=== PATIENT | male | born 1965 | race Two or more races ===

== ENCOUNTER 2017-11-30 19:56 | Inpatient (IN) | payer OTHER ==
[2017-11-30 20:12] VITALS: BMI 36.0
--- NOTE | 2017-11-30 20:44 | HP ---
COWS - Scale Resting Pulse: 0= [place] 80 or Below Sweatin=Flushed/Facial Moisture Restless Observation: 1= Difficult to Sit Still Pupil Size: 0= Normal to Room Light Bone or Joint Aches: 1= Mild Discomfort Runny Nose/ Eye Tearin= Runny Nose/Eyes GI Upset > 30mins: 3= Vomiting/Diarrhea Tremor Observation: 2= Slight Tremor Visible Yawning Observation: 1= 1-2x During Session Anxiety or Irritability: 4=Extreme Anxiety Goose Flesh Skin: 0=Smooth Skin COWS Score: 16 CIWA Score - CIWA Score Nausea/Vomitin Muscle Tremors: 2 Anxiety: 3 Agitation: 3 Paroxysmal Sweats: 2 Orientation: 1-Uncertain about Date (no distress) Tacttile Disturbances: 1-Very Mild Itch/Numbness Auditory Disturbances: 0-None Visual Disturbances: 0-None Headache: 3-Moderate CIWA-Ar Total Score: 18 Admission ROS S - HPI Chief Complaint: opioid and alcohol withdrawal symptoms Allergies/Adverse Reactions: Allergies Allergy/AdvReac Type Severity Reaction Status Date / Time No Known Allergies Allergy Verified 11/30/17 20:45 History of Present Illness: 52 yo male with hx of IV heroin, alcohol, THC, and nicotine dependence is here seeking detox. PMHX: HTN, hyperlipidemia, CHF, A-Fib, Pacemaker, DM II, Hep C, COPD, depression, PTSD. Reports non-compliance with medications, reports takes them sporadically 1-2 days out the week. Patient reports this past Thursday was taken to [facility] for Overdose, as per patient he has OD 2x. Denies suicidal / homicidal ideation. Last detox 2010. Longest period of sobriety 6 years. Exam Limitations: No Limitations - Ebola screening Have you been sick,other than usual withdrawal symptoms: No - Review of Systems Constitutional: Chills, Diaphoresis, Changes in sleep, Unintentional Wgt. Loss EENT: reports: No Symptoms Reported Respiratory: reports: See HPI, SOB with Exertion Cardiac: reports: No Symptoms Reported GI: reports: Diarrhea, Nausea, Poor Appetite, Poor Fluid Intake, Vomiting, Abdominal cramping : reports: No Symptoms Reported Musculoskeletal: reports: No Symptoms Reported, Back Pain, Joint Pain Integumentary: reports: Pruritus Neuro: reports: See HPI, Headache Endocrine: reports: Excessive Sweating, Increased Thirst Hematology: reports: Blood Clots (hx PE July 2017) Psychiatric: reports: Orientated x3, Anxious Other Systems: Reviewed and Negative Patient History - Patient Medical History Hx Anemia: No Hx Asthma: No Hx Chronic Obstructive Pulmonary Disease (COPD): Yes Hx Cancer: No Hx Cardiac Disorders: Yes (HX [place] x 4, hx A-Fib) Hx Congestive Heart Failure: Yes Hx Hypertension: Yes Hx Hypercholesterolemia: Yes Hx Pacemaker: Yes (Inmplanted two months ) HX Cerebrovascular Accident: Yes (hx TIA (age undetermine)) Hx Seizures: No Hx Dementia: No Hx Diabetes: Yes Hx Gastrointestinal Disorders: No Hx Liver Disease: Yes (Hep C ) Hx Genitourinary Disorders: No Hx Sexually Transmitted Disorders: No Hx Renal Disease (ESRD): No Hx Thyroid Disease: No Hx Human Immunodeficiency Virus (HIV): No (last tested 5 months ago ) Hx Hepatitis C: Yes Hx Depression: Yes Hx Suicide Attempt: No Hx Bipolar Disorder: No Hx Schizophrenia: No - Patient Surgical History Past Surgical History: Yes Hx Neurologic Surgery: No Hx Cataract Extraction: No Hx Cardiac Surgery: Yes (Pace Maker September 2017) Hx Lung Surgery: No Hx Breast Surgery: No Hx Breast Biopsy: No Hx Abdominal Surgery: No Hx Appendectomy: No Hx Cholecystectomy: No Hx Genitourinary Surgery: No Hx Section: No Hx Orthopedic Surgery: No Hx Hysterectomy: No Anesthesia Reaction: No - PPD History Previous Implant?: Yes Documented Results: Negative w/o proof PPD to be Administered?: Yes - Smoking Cessation Smoking history: Current every day smoker Have you smoked in the past 12 months: Yes Aproximately how many cigarettes per day: 20 Hx Chewing Tobacco Use: No Initiated information on smoking cessation: Yes 'Breaking Loose' booklet given: 11/30/17 - Substance & Tx. History Hx Alcohol Use: Yes Hx Substance Use: Yes Substance Use Type: Alcohol, Heroin Hx Substance Use Treatment: Yes ([facility] 2010) - Substances Abused Alcohol Route: Oral Frequency: 3-6 times per week Amount used: 3 x six pack 16 oz beers Age of first use: 14 Date of Last Use: 11/29/17 Heroin Route: Injection Frequency: Daily Amount used: 3 bundles Age of first use: 14 Date of Last Use: 11/29/17 Family Disease History - Family Disease History Family Disease History: CA: Father ( ), Mother ( ), Other: Father , Mother Admission Physical Exam BHS - Vital Signs Vital Signs: Vital Signs - 24 hr 11/30/17 20:09 Temperature 98.9 F Pulse Rate 72 Respiratory 18 Rate Blood Pressure 156/110 - Physical General Appearance: Yes: Disheveled, Mild Distress, Sweating, Anxious HEENTM: Yes: EOMI, Hearing grossly Normal, Normal ENT Inspection, Normocephalic , Normal Voice, JESUS, Pharynx Normal, Tm's normal Respiratory: Yes: Chest Non-Tender, Lungs Clear, Normal Breath Sounds, No Respiratory Distress, No Accessory Muscle Use Neck: Yes: Within Normal Limits Breast: Yes: Breast Exam Deferred Cardiology: Yes: Regular Rhythm, Regular Rate Abdominal: Yes: Normal Bowel Sounds, Non Tender, Soft, Protuberent Genitourinary: Yes: Within Normal Limits Back: Yes: Normal Inspection Musculoskeletal: Yes: full range of Motion, Gait Steady, Pelvis Stable Extremities: Yes: Normal Capillary Refill, Normal Inspection, Normal Range of Motion, Non-Tender Neurological: Yes: environmental journalist II-XII NML intact, Fully Oriented, Alert, Motor Strength 5/5, Depressed Affect Integumentary: Yes: Normal Color, Warm, Diaphoresis, Track Estrada (both forearms and both legs, no signs of infection) Lymphatic: Yes: Within Normal Limits - Diagnostic (1) Opioid dependence with withdrawal Current Visit: Yes Status: Acute (2) Alcohol dependence with withdrawal Current Visit: Yes Status: Acute Qualifiers: Complication of substance-induced condition: uncomplicated Qualified Code(s ): F10.230 - Alcohol dependence with withdrawal, uncomplicated (3) CHF (congestive heart failure) Current Visit: Yes Status: Chronic Qualifiers: Heart failure type: unspecified Heart failure chronicity: chronic Qualified Code(s): I50.9 - Heart failure, unspecified (4) Pacemaker Current Visit: Yes Status: Chronic Comment: placed September 2017 (5) IV drug user Current Visit: Yes Status: Acute (6) Obese Current Visit: Yes Status: Chronic Qualifiers: Obesity type: unspecified obesity type Obesity classification: adult class 2 (BMI 35 - 39.9) Serious obesity comorbidity presence: with serious comorbidity Body mass index: BMI 36.0-36.9 Qualified Code(s): E66.9 - Obesity, unspecified; Z68.36 - Body mass index (BMI) 36.0-36.9, adult (7) Hypertension Current Visit: Yes Status: Chronic Qualifiers: Hypertension type: essential hypertension Qualified Code(s): I10 - Essential (primary) hypertension (8) Elevated blood pressure reading in office with diagnosis of hypertension Current Visit: Yes Status: Acute (9) Non compliance w medication regimen Current Visit: Yes Status: Chronic (10) COPD (chronic obstructive pulmonary disease) Current Visit: Yes Status: Chronic Qualifiers: COPD type: unspecified COPD Qualified Code(s): J44.9 - Chronic obstructive pulmonary disease, unspecified (11) GERD (gastroesophageal reflux disease) Current Visit: Yes Status: Chronic Qualifiers: Esophagitis presence: without esophagitis Qualified Code(s): K21.9 - Gastro -esophageal reflux disease without esophagitis Cleared for Admission BHS - Detox or Rehab S Level of Care: Medically Managed Detox Regimen/Protocol: Methadone/Librium BHS Breath Alcohol Content Breath Alcohol Content: 0 Urine Drug Screen - Results Drug Screen Negative: No Urine Drug Screen Results: THC-Marijuana, OPI-Opiates
[2017-11-30] MEDS ORDERED: MENTHOL/PHENOL 1 EACH UD MM PRN (20:54)
[2017-11-30] MEDS ORDERED: guaiFENesin/D-METHORPHAN HB 10 ML UNIT-DOSE CUPS PO PRN (20:54)
[2017-11-30] MEDS ORDERED: MAGNESIUM CITRATE 300 ML BOTTLE PO PRN (20:54)
[2017-11-30] MEDS ORDERED: MAG HYDROX/AL HYDROX/SIMETH 30 ML UNIT-DOSE CUP PO PRN (20:54)
[2017-11-30] MEDS ORDERED: LOPERAMIDE HCL 2 MG CAPSULE PO PRN (20:54)
[2017-11-30] MEDS ORDERED: MAGNESIUM HYDROX 2400MG/30ML ORAL SUSPENSION 30 ML CUP PO PRN (20:54)
[2017-11-30] MEDS ORDERED: chlordiazePOXIDE HCL 25 MG CAPSULE PO ONE (20:54)
[2017-11-30] MEDS ORDERED: NICOTINE POLACRILEX 2 MG GUM BC PRN (20:54)
[2017-11-30] MEDS ORDERED: P-EPHED 60MG/TRIPROLIDI 2.5MG TABLET PO PRN (20:54)
[2017-11-30] MEDS ORDERED: chlordiazePOXIDE HCL 25 MG CAPSULE PO PRN (20:54)
[2017-11-30] MEDS ORDERED: METHADONE HCL 10 MG TABLET (FOR DETOX USE ONLY) PO ONE ×2 (20:54→23:00)
[2017-11-30] MEDS ORDERED: ALBUTEROL SO4 2.5/IPRATROPIUM 0.5 INH SOL 3 ML VIAL.NEB. NEB PRN (21:38)
[2017-11-30] MEDS ORDERED: cloNIDine HCL 0.1 MG TABLET PO ONE (21:42)
[2017-11-30] MEDS ORDERED: MELATONIN 5 MG TABLETS PO PRN (22:00)
[2017-11-30] MEDS ORDERED: METHADONE HCL 10 MG TABLET (FOR DETOX USE ONLY) ONE (23:39)
[2017-11-30] MEDS: THIAMINE HCL 100 MG TABLET (FP) PO SCH (23:42)
[2017-11-30] MEDS: ATORVASTATIN CA 10 MG TABLET (FP) PO SCH (23:42)
[2017-11-30] MEDS: ASPIRIN 81 MG CHEWABLE TABLETS PO SCH (23:42)
[2017-11-30] MEDS: BACITRACIN 0.9 GM PACKET TP SCH (23:51)
[2017-11-30] MEDS: chlordiazePOXIDE HCL 25 MG CAPSULE PO SCH (23:54)
[2017-12-01 00:11] LABS: URINE APPEARANCE CLEAR; URINE BILIRUBIN NEGATIVE (<2.0 mg/dL); URINE COLOR YELLOW; URINE GLUCOSE (UA) 1+ (NEGATIVE); URINE KETONE NEGATIVE (NEGATIVE); URINE LEUK ESTERASE NEGATIVE (NEGATIVE); URINE NITRITE NEGATIVE (NEGATIVE); URINE UROBILINOGEN 4.0 E.U/dl mg/dL (0.2-1.0)
[2017-12-01 01:06] LABS: URINE PROTEIN 2+ (NEGATIVE)
[2017-12-01 01:08] LABS: EPI CELLS RARE /HPF (FEW); URINE MUCUS RARE
[2017-12-01] MEDS: chlordiazePOXIDE HCL 25 MG CAPSULE PO SCH ×4 (05:22→22:09)
[2017-12-01] MEDS: ACETAMINOPHEN 325 MG TABLET (FP) PO PRN ×2 (05:44→22:11)
[2017-12-01] MEDS: metFORMIN HCL 500 MG TABLET (FP) PO SCH ×2 (06:04→17:14)
[2017-12-01] MEDS: INSULIN SLIDING SCALE (NOVOLOG) 1 VIAL SQ SCH ×2 (06:05→17:16)
[2017-12-01] MEDS ORDERED: METHADONE HCL 10 MG TABLET (FOR DETOX USE ONLY) PO SCH (10:00)
[2017-12-01 10:10] LABS: HEMATOCRIT 39.6 % (35.4-49); HEMOGLOBIN 13.2 GM/dL (11.7-16.9); MCH 29.4 pg (25.7-33.7); MCHC 33.4 g/dl (32.0-35.9); MEAN CELL VOLUME 87.9 fl (80-96); PLATELET COUNT 156 K/MM3 (134-434); RDW 16.2 % (11.9-15.9); WHITE BLOOD COUNT 7.6 K/mm3 (4.0-10.0)
[2017-12-01] MEDS: LISINOPRIL 20 MG TABLET (FP) PO SCH (10:31)
[2017-12-01] MEDS: ASPIRIN 81 MG CHEWABLE TABLETS PO SCH (10:31)
[2017-12-01] MEDS: PRENATAL VITAMINS W/ FOLIC ACID TABLET (FP) PO SCH (10:31)
[2017-12-01] MEDS: NICOTINE 21 MG/24 HOURS TOPICAL PATCH TD SCH (10:32)
[2017-12-01] MEDS: BACITRACIN 0.9 GM PACKET TP SCH (10:32)
[2017-12-01] MEDS: BUDESONIDE/FORMETEROL FUMARATE 160/4.5 mcg INHALER IH SCH ×2 (10:32→22:09)
[2017-12-01 10:44] LABS: ANION GAP 5 (8-16); BLOOD UREA NITROGEN 9 mg/dL (7-18); CALCIUM 8.5 mg/dL (8.5-10.1); CHLORIDE 103 mmol/L (98-107); CO2 31 mmol/L (21-32); CREATININE 0.9 mg/dL (0.7-1.3); GLUCOSE,RANDOM 237 mg/dL (74-106); POTASSIUM 3.9 mmol/L (3.5-5.1); SGOT/AST 29 U/L (15-37); SGPT/ALT 46 U/L (12-78); SODIUM 139 mmol/L (136-145)
[2017-12-01 10:45] LABS: ALK PHOS 200 U/L (45-117); BILIRUBIN,TOTAL 0.5 mg/dL (0.2-1.0); TOT PROT 6.8 g/dl (6.4-8.2)
--- NOTE | 2017-12-01 11:54 | PN ---
[facility] CIWA - CIWA Score Nausea/Vomitin-No Nausea/No Vomiting Muscle Tremors: None Anxiety: 5 Agitation: 3 Paroxysmal Sweats: 3 Orientation: 2-Disoriented Date<2 days Tacttile Disturbances: 2-Mild Itch/Numbness/Burn Auditory Disturbances: 0-None Visual Disturbances: 3-Moderate Sensitivity Headache: 0-None Present CIWA-Ar Total Score: 18 BHS COWS - Scale Resting Pulse: 0= [place] 80 or Below Sweatin= Chills/Flushing Restless Observation: 1= Difficult to Sit Still Pupil Size: 0= Normal to Room Light Bone or Joint Aches: 1= Mild Discomfort Runny Nose/ Eye Tearin= Nasal Congestion GI Upset > 30mins: 2= Nausea/Diarrhea Tremor Observation of Outstretched Hands: 0= None Yawning Observation: 1= 1-2x During Session Anxiety or Irritability: 2=Irritable/Anxious Goose Flesh Skin: 3=Piloerection COWS Score: 12 BHS Progress Note (SOAP) Subjective: Interrupted Sleep, Sweating, H/A, Diarrhea, Anxious. Objective: PATIENT A & O X 2 (UNCERTAIN ABOUT CURRENT DAY / DATE). PATIENT OBSERVED AMBULATING ON UNIT. NO ACUTE DISTRESS. PATIENT REPORTS THAT HE HAS NOT TAKEN ANY OF HIS PREVIOUSLY PRESCRIBED HOME MEDICATIONS FOR APROX. 2 MONTHS. PATIENT DENIES CHEST PAIN, DIZZINESS, AND SOB. 12/01/17 11:53 Vital Signs Temperature 95.5 F L 12/01/17 09:38 Pulse Rate 69 12/01/17 09:38 Respiratory Rate 18 12/01/17 09:38 Blood Pressure 141/92 12/01/17 09:38 O2 Sat by Pulse Oximetry (%) Laboratory Tests 11/30/17 11/30/17 11/30/17 21:41 23:49 23:50 WBC RBC Hgb Hct MCV MCH MCHC RDW Plt Count MPV Sodium Potassium Chloride Carbon Dioxide Anion Gap BUN Creatinine Creat Clearance w eGFR POC Glucometer 281 270 Random Glucose Calcium Total Bilirubin AST ALT Alkaline Phosphatase Total Protein Albumin Urine Color Yellow Urine Appearance Clear Urine pH 7.0 Ur Specific [place] 1.021 Urine Protein 2+ H Urine Glucose (UA) 1+ H Urine Ketones Negative Urine Blood Negative Urine Nitrite Negative Urine Bilirubin Negative Urine Urobilinogen 4.0 e.u/dl Ur Leukocyte Esterase Negative Urine WBC (Auto) 1 Urine RBC (Auto) 1 Ur Epithelial Cells Rare Urine Mucus Rare 12/01/17 12/01/17 12/01/17 05:21 07:15 07:15 WBC 7.6 RBC 4.50 Hgb 13.2 Hct 39.6 MCV 87.9 MCH 29.4 MCHC 33.4 RDW 16.2 H Plt Count 156 MPV 10.0 Sodium 139 Potassium 3.9 Chloride 103 Carbon Dioxide 31 Anion Gap 5 L BUN 9 Creatinine 0.9 Creat Clearance w eGFR > 60 POC Glucometer 191 Random Glucose 237 H Calcium 8.5 Total Bilirubin 0.5 AST 29 ALT 46 Alkaline Phosphatase 200 H Total Protein 6.8 Albumin 3.0 L Urine Color Urine Appearance Urine pH Ur Specific [place] Urine Protein Urine Glucose (UA) Urine Ketones Urine Blood Urine Nitrite Urine Bilirubin Urine Urobilinogen Ur Leukocyte Esterase Urine WBC (Auto) Urine RBC (Auto) Ur Epithelial Cells Urine Mucus LABS NOTED. RPR RESULT PENDING. 12/01/17 11:55 12/01/17 11:56 12/01/17 11:57 Assessment: 12/01/17 11:54 WITHDRAWAL SYMPTOMS. HYPERTENSION. 12/01/17 11:56 Plan: CONTINUE DETOX. PATIENT REPORTS THAT HE DOES NOT CURRENTLY HAVE A KICKING MACHINE OPERATOR BUT THAT HE WILL BE MOVING TO THE [facility] AFTER DISCHARGE FROM DETOX UNIT. PATIENT ADVISED TO OBTAIN KICKING MACHINE OPERATOR AT [facility] AFTER DISCHARGE FROM DETOX UNIT TO FOLLOW-UP FOR MEDICAL ASSESSMENT AND FOR HISTORY OF A-FIB AND PACEMAKER PLACEMENT.
--- NOTE | 2017-12-01 12:08 | EKG ---
Test Reason : Blood Pressure : / mmHG Vent. Rate : 069 BPM Atrial Rate : 069 BPM P-R Int : 000 ms QRS Dur : 168 ms QT Int : 476 ms P-R-T Axes : 056 -80 085 degrees QTc Int : 510 ms Ventricular-paced rhythm ABNORMAL ECG Confirmed by MD JAMES, DICKSON ([id number]) on 12/01/2017 12:08:19 PM Referred By: Confirmed By:DICKSON RAMIREZ MD
--- NOTE | 2017-12-01 12:09 | EKG ---
Test Reason : Blood Pressure : / mmHG Vent. Rate : 071 BPM Atrial Rate : 087 BPM P-R Int : 000 ms QRS Dur : 082 ms QT Int : 378 ms P-R-T Axes : 000 047 195 degrees QTc Int : 410 ms Ventricular-paced rhythm WITH OCCASIONAL sinus complexes ABNORMAL ECG Confirmed by MD JAMES, DICKSON ([id number]) on 12/01/2017 12:08:36 PM Referred By: Confirmed By:DICKSON RAMIREZ MD
[2017-12-01] MEDS ORDERED: ISOSORBIDE MONONITRATE 30 MG TAB.SR.24H (FP) PO SCH (13:15)
[2017-12-01] MEDS: ISOSORBIDE MONONITRATE 30 MG TAB.SR.24H (FP) PO SCH (14:02)
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
[2017-12-01] MEDS ORDERED: INSULIN (NOVOLOG) ASPART 100 UNITS/ML 10ML VIAL ONE (16:43)
[2017-12-01] MEDS: THIAMINE HCL 100 MG TABLET (FP) PO SCH (22:09)
[2017-12-01] MEDS: ZOLPIDEM TARTRATE 10 MG TABLET (PARK CARE ONLY) PO PRN (22:09)
[2017-12-01] MEDS: ATORVASTATIN CA 10 MG TABLET (FP) PO SCH (22:09)
[2017-12-02] MEDS: chlordiazePOXIDE HCL 25 MG CAPSULE PO SCH ×3 (05:45→17:26)
[2017-12-02] MEDS: metFORMIN HCL 500 MG TABLET (FP) PO SCH ×2 (06:10→17:26)
[2017-12-02] MEDS ORDERED: INSULIN (NOVOLOG) ASPART 100 UNITS/ML 10ML VIAL ONE ×2 (06:12→16:54)
[2017-12-02] MEDS: INSULIN SLIDING SCALE (NOVOLOG) 1 VIAL SQ SCH ×2 (06:36→17:28)
[2017-12-02] MEDS: BACITRACIN 0.9 GM PACKET TP SCH (10:19)
[2017-12-02] MEDS: SERTRALINE HCL 25 MG TABLET (FP) PO SCH (10:19)
[2017-12-02] MEDS: PRENATAL VITAMINS W/ FOLIC ACID TABLET (FP) PO SCH (10:19)
[2017-12-02] MEDS: LISINOPRIL 20 MG TABLET (FP) PO SCH (10:19)
[2017-12-02] MEDS: ISOSORBIDE MONONITRATE 30 MG TAB.SR.24H (FP) PO SCH (10:19)
[2017-12-02] MEDS: ASPIRIN 81 MG CHEWABLE TABLETS PO SCH (10:19)
[2017-12-02] MEDS: METHADONE HCL 5 MG TABLET (FOR DETOX USE ONLY) PO SCH (10:19)
[2017-12-02] MEDS: BUDESONIDE/FORMETEROL FUMARATE 160/4.5 mcg INHALER IH SCH ×2 (10:19→22:52)
[2017-12-02] MEDS: NICOTINE 21 MG/24 HOURS TOPICAL PATCH TD SCH (10:20)
--- NOTE | 2017-12-02 11:40 | PN ---
S CIWA - CIWA Score Nausea/Vomitin-No Nausea/No Vomiting Muscle Tremors: None Anxiety: 4-Mod. Anxious/Guarded Agitation: 1-Slight > Activity Paroxysmal Sweats: 3 Orientation: 0-Oriented Tacttile Disturbances: 2-Mild Itch/Numbness/Burn Auditory Disturbances: 1-Very Mild Visual Disturbances: 3-Moderate Sensitivity Headache: 0-None Present CIWA-Ar Total Score: 14 S COWS - Scale Resting Pulse: 0= [place] 80 or Below Sweatin= Chills/Flushing Restless Observation: 0= Sits Still Pupil Size: 0= Normal to Room Light Bone or Joint Aches: 2= Severe Diffuse Aches Runny Nose/ Eye Tearin= Nasal Congestion GI Upset > 30mins: 2= Nausea/Diarrhea Tremor Observation of Outstretched Hands: 0= None Yawning Observation: 2= >3x During Session Anxiety or Irritability: 2=Irritable/Anxious Goose Flesh Skin: 0=Smooth Skin COWS Score: 10 S Progress Note (SOAP) Subjective: Sweating, Fatigue, H/A, Body Aches, Diarrhea. Objective: PATIENT A & O X 3. NO ACUTE DISTRESS. PATIENT DENIES CHEST PAIN, SOB, AND DIZZINESS. 12/02/17 11:38 Vital Signs Temperature 96.8 F L 12/02/17 09:01 Pulse Rate 74 12/02/17 09:01 Respiratory Rate 18 12/02/17 09:01 Blood Pressure 130/81 12/02/17 09:01 O2 Sat by Pulse Oximetry (%) Laboratory Tests 11/30/17 11/30/17 11/30/17 21:41 23:49 23:50 WBC RBC Hgb Hct MCV MCH MCHC RDW Plt Count MPV Sodium Potassium Chloride Carbon Dioxide Anion Gap BUN Creatinine Creat Clearance w eGFR POC Glucometer 281 270 Random Glucose Calcium Total Bilirubin AST ALT Alkaline Phosphatase Total Protein Albumin Urine Color Yellow Urine Appearance Clear Urine pH 7.0 Ur Specific [place] 1.021 Urine Protein 2+ H Urine Glucose (UA) 1+ H Urine Ketones Negative Urine Blood Negative Urine Nitrite Negative Urine Bilirubin Negative Urine Urobilinogen 4.0 e.u/dl Ur Leukocyte Esterase Negative Urine WBC (Auto) 1 Urine RBC (Auto) 1 Ur Epithelial Cells Rare Urine Mucus Rare 12/01/17 12/01/17 12/01/17 05:21 07:15 07:15 WBC 7.6 RBC 4.50 Hgb 13.2 Hct 39.6 MCV 87.9 MCH 29.4 MCHC 33.4 RDW 16.2 H Plt Count 156 MPV 10.0 Sodium 139 Potassium 3.9 Chloride 103 Carbon Dioxide 31 Anion Gap 5 L BUN 9 Creatinine 0.9 Creat Clearance w eGFR > 60 POC Glucometer 191 Random Glucose 237 H Calcium 8.5 Total Bilirubin 0.5 AST 29 ALT 46 Alkaline Phosphatase 200 H Total Protein 6.8 Albumin 3.0 L Urine Color Urine Appearance Urine pH Ur Specific [place] Urine Protein Urine Glucose (UA) Urine Ketones Urine Blood Urine Nitrite Urine Bilirubin Urine Urobilinogen Ur Leukocyte Esterase Urine WBC (Auto) Urine RBC (Auto) Ur Epithelial Cells Urine Mucus 12/01/17 12/02/17 16:22 05:45 WBC RBC Hgb Hct MCV MCH MCHC RDW Plt Count MPV Sodium Potassium Chloride Carbon Dioxide Anion Gap BUN Creatinine Creat Clearance w eGFR POC Glucometer 269 247 Random Glucose Calcium Total Bilirubin AST ALT Alkaline Phosphatase Total Protein Albumin Urine Color Urine Appearance Urine pH Ur Specific [place] Urine Protein Urine Glucose (UA) Urine Ketones Urine Blood Urine Nitrite Urine Bilirubin Urine Urobilinogen Ur Leukocyte Esterase Urine WBC (Auto) Urine RBC (Auto) Ur Epithelial Cells Urine Mucus LABS NOTED. RPR RESULT PENDING. 12/02/17 11:40 Assessment: 12/02/17 11:40 WITHDRAWAL SYMPTOMS. Plan: CONTINUE DETOX.
[2017-12-02] MEDS: ACETAMINOPHEN 325 MG TABLET (FP) PO PRN ×2 (14:52→18:25)
--- NOTE | 2017-12-02 18:14 | PN ---
S Progress Note Note: NOTIFIED BY RN THAT PATIENT'S BP ELEVATED. HAS HX OF HTN. PATIENT IS ASYMPTOMATIC. Vital Signs Temperature 99.3 F 12/02/17 17:29 Pulse Rate 71 12/02/17 17:29 Respiratory Rate 20 12/02/17 17:29 Blood Pressure 162/102 12/02/17 17:29 O2 Sat by Pulse Oximetry (%) WILL ORDER STAT DOSE OF CLONIDINE 0.2MG PO STAT. CONTINUE TO MONITOR CLINICALLY.
[2017-12-02] MEDS ORDERED: cloNIDine HCL 0.1 MG TABLET PO ONE (18:30)
[2017-12-02] MEDS: IBUPROFEN 400 MG TABLET (FP) PO PRN (21:33)
[2017-12-02] MEDS: THIAMINE HCL 100 MG TABLET (FP) PO SCH (21:37)
[2017-12-02] MEDS: ZOLPIDEM TARTRATE 10 MG TABLET (PARK CARE ONLY) PO PRN (21:37)
[2017-12-02] MEDS: chlordiazePOXIDE 5 MG CAPSULE PO SCH (22:13)
[2017-12-02] MEDS: ATORVASTATIN CA 10 MG TABLET (FP) PO SCH (22:52)
--- NOTE | 2017-12-02 22:59 | PN ---
[facility] Progress Note Note: Patients blood pressure was B/P 157/106. Patient complained of headache rated at 8/10 Vital Signs - 8 hr 12/02/17 12/02/17 12/02/17 17:29 21:17 22:57 Temperature 99.3 F 97.7 F Pulse Rate 71 70 72 Respiratory 20 16 18 Rate Blood Pressure 162/102 157/106 151/84 Action: EKG done Motrin 400mg tablet oral given Librium 25mg tablet oral given Blood pressure rechecked and is now B/P 151/84. Patient verbalized relieve and rates headache now at 2/10 and tolerable
[2017-12-03] MEDS: chlordiazePOXIDE 5 MG CAPSULE PO SCH ×3 (06:11→17:05)
[2017-12-03] MEDS: INSULIN SLIDING SCALE (NOVOLOG) 1 VIAL SQ SCH ×2 (06:13→17:08)
[2017-12-03] MEDS: metFORMIN HCL 500 MG TABLET (FP) PO SCH ×2 (06:13→17:05)
[2017-12-03] MEDS ORDERED: INSULIN (NOVOLOG) ASPART 100 UNITS/ML 10ML VIAL ONE ×2 (06:27→16:41)
[2017-12-03] MEDS: BUDESONIDE/FORMETEROL FUMARATE 160/4.5 mcg INHALER IH SCH ×2 (10:40→22:19)
[2017-12-03] MEDS: METHADONE HCL 5 MG TABLET (FOR DETOX USE ONLY) PO SCH (10:41)
[2017-12-03] MEDS: SERTRALINE HCL 25 MG TABLET (FP) PO SCH (10:41)
[2017-12-03] MEDS: ASPIRIN 81 MG CHEWABLE TABLETS PO SCH (10:41)
[2017-12-03] MEDS: PRENATAL VITAMINS W/ FOLIC ACID TABLET (FP) PO SCH (10:41)
[2017-12-03] MEDS: BACITRACIN 0.9 GM PACKET TP SCH (10:41)
[2017-12-03] MEDS: LISINOPRIL 20 MG TABLET (FP) PO SCH (10:41)
[2017-12-03] MEDS: NICOTINE 21 MG/24 HOURS TOPICAL PATCH TD SCH (10:42)
[2017-12-03] MEDS: ISOSORBIDE MONONITRATE 30 MG TAB.SR.24H (FP) PO SCH (10:42)
--- NOTE | 2017-12-03 12:12 | EKG ---
Test Reason : Blood Pressure : / mmHG Vent. Rate : 070 BPM Atrial Rate : 085 BPM P-R Int : 000 ms QRS Dur : 164 ms QT Int : 474 ms P-R-T Axes : 000 -75 091 degrees QTc Int : 511 ms Ventricular-paced rhythm ABNORMAL ECG WHEN COMPARED WITH ECG OF 01-DEC-2017 09:17, NO SIGNIFICANT CHANGE WAS FOUND Confirmed by MARTA DRUMMOND MD ([id number]) on 12/03/2017 12:11:41 PM Referred By: Confirmed By:MARTA DRUMMOND MD
--- NOTE | 2017-12-03 13:21 | PN ---
[facility] Progress Note (SOAP) Subjective: Body Aches, Interrupted Sleep, Anxious, Diarrhea, Tremors. Objective: PATIENT A & O X 3, OBSERVED AMBULATING ON UNIT. NO ACUTE DISTRESS. PATIENT DENIES CHEST PAIN. 12/03/17 13:18 Vital Signs Temperature 98.9 F 12/03/17 09:43 Pulse Rate 76 12/03/17 09:43 Respiratory Rate 20 12/03/17 09:43 Blood Pressure 142/86 12/03/17 09:43 O2 Sat by Pulse Oximetry (%) Laboratory Tests 11/30/17 11/30/17 11/30/17 21:41 23:49 23:50 WBC RBC Hgb Hct MCV MCH MCHC RDW Plt Count MPV Sodium Potassium Chloride Carbon Dioxide Anion Gap BUN Creatinine Creat Clearance w eGFR POC Glucometer 281 270 Random Glucose Calcium Total Bilirubin AST ALT Alkaline Phosphatase Total Protein Albumin Urine Color Yellow Urine Appearance Clear Urine pH 7.0 Ur Specific [place] 1.021 Urine Protein 2+ H Urine Glucose (UA) 1+ H Urine Ketones Negative Urine Blood Negative Urine Nitrite Negative Urine Bilirubin Negative Urine Urobilinogen 4.0 e.u/dl Ur Leukocyte Esterase Negative Urine WBC (Auto) 1 Urine RBC (Auto) 1 Ur Epithelial Cells Rare Urine Mucus Rare RPR Titer 12/01/17 12/01/17 12/01/17 05:21 07:15 07:15 WBC 7.6 RBC 4.50 Hgb 13.2 Hct 39.6 MCV 87.9 MCH 29.4 MCHC 33.4 RDW 16.2 H Plt Count 156 MPV 10.0 Sodium 139 Potassium 3.9 Chloride 103 Carbon Dioxide 31 Anion Gap 5 L BUN 9 Creatinine 0.9 Creat Clearance w eGFR > 60 POC Glucometer 191 Random Glucose 237 H Calcium 8.5 Total Bilirubin 0.5 AST 29 ALT 46 Alkaline Phosphatase 200 H Total Protein 6.8 Albumin 3.0 L Urine Color Urine Appearance Urine pH Ur Specific [place] Urine Protein Urine Glucose (UA) Urine Ketones Urine Blood Urine Nitrite Urine Bilirubin Urine Urobilinogen Ur Leukocyte Esterase Urine WBC (Auto) Urine RBC (Auto) Ur Epithelial Cells Urine Mucus RPR Titer 12/01/17 12/01/17 12/02/17 07:30 16:22 05:45 WBC RBC Hgb Hct MCV MCH MCHC RDW Plt Count MPV Sodium Potassium Chloride Carbon Dioxide Anion Gap BUN Creatinine Creat Clearance w eGFR POC Glucometer 269 247 Random Glucose Calcium Total Bilirubin AST ALT Alkaline Phosphatase Total Protein Albumin Urine Color Urine Appearance Urine pH Ur Specific [place] Urine Protein Urine Glucose (UA) Urine Ketones Urine Blood Urine Nitrite Urine Bilirubin Urine Urobilinogen Ur Leukocyte Esterase Urine WBC (Auto) Urine RBC (Auto) Ur Epithelial Cells Urine Mucus RPR Titer Nonreactive 12/02/17 12/03/17 16:11 06:12 WBC RBC Hgb Hct MCV MCH MCHC RDW Plt Count MPV Sodium Potassium Chloride Carbon Dioxide Anion Gap BUN Creatinine Creat Clearance w eGFR POC Glucometer 272 201 Random Glucose Calcium Total Bilirubin AST ALT Alkaline Phosphatase Total Protein Albumin Urine Color Urine Appearance Urine pH Ur Specific [place] Urine Protein Urine Glucose (UA) Urine Ketones Urine Blood Urine Nitrite Urine Bilirubin Urine Urobilinogen Ur Leukocyte Esterase Urine WBC (Auto) Urine RBC (Auto) Ur Epithelial Cells Urine Mucus RPR Titer LABS NOTED. Assessment: 12/03/17 13:19 WITHDRAWAL SYMPTOMS. Plan: CONTINUE DETOX.
[2017-12-03] MEDS: IBUPROFEN 400 MG TABLET (FP) PO PRN ×2 (15:16→22:24)
[2017-12-03] MEDS ORDERED: cloNIDine HCL 0.1 MG TABLET PO ONE (17:20)
--- NOTE | 2017-12-03 17:22 | PN ---
[facility] Progress Note Note: Clonidine, 0.1 mg PO X 1 ordered for persistently elevated BP. Estelle Galvan POSTPARTUM RN
[2017-12-03] MEDS: ACETAMINOPHEN 325 MG TABLET (FP) PO PRN (21:14)
[2017-12-03] MEDS: ZOLPIDEM TARTRATE 10 MG TABLET (PARK CARE ONLY) PO PRN (22:19)
[2017-12-03] MEDS: ATORVASTATIN CA 10 MG TABLET (FP) PO SCH (22:19)
[2017-12-03] MEDS: THIAMINE HCL 100 MG TABLET (FP) PO SCH (22:19)
[2017-12-03] MEDS: chlordiazePOXIDE HCL 10 MG CAPSULE PO SCH (22:19)
[2017-12-04] MEDS: chlordiazePOXIDE HCL 10 MG CAPSULE PO SCH ×2 (05:32→10:35)
[2017-12-04] MEDS: INSULIN SLIDING SCALE (NOVOLOG) 1 VIAL SQ SCH (07:58)
[2017-12-04] MEDS: metFORMIN HCL 500 MG TABLET (FP) PO SCH (07:58)
[2017-12-04 09:30] VITALS: TEMP 98.4
[2017-12-04] MEDS ORDERED: METHADONE HCL 10 MG TABLET (FOR DETOX USE ONLY) PO SCH (10:00)
[2017-12-04] MEDS: LISINOPRIL 20 MG TABLET (FP) PO SCH (10:35)
[2017-12-04] MEDS: ISOSORBIDE MONONITRATE 30 MG TAB.SR.24H (FP) PO SCH (10:35)
[2017-12-04] MEDS: BUDESONIDE/FORMETEROL FUMARATE 160/4.5 mcg INHALER IH SCH (10:35)
[2017-12-04] MEDS: NICOTINE 21 MG/24 HOURS TOPICAL PATCH TD SCH (10:35)
[2017-12-04] MEDS: BACITRACIN 0.9 GM PACKET TP SCH (10:35)
[2017-12-04] MEDS: ASPIRIN 81 MG CHEWABLE TABLETS PO SCH (10:35)
[2017-12-04] MEDS: SERTRALINE HCL 25 MG TABLET (FP) PO SCH (10:35)
[2017-12-04] MEDS: PRENATAL VITAMINS W/ FOLIC ACID TABLET (FP) PO SCH (10:35)
--- NOTE | 2017-12-04 12:38 | PN ---
[facility] Progress Note (SOAP) Subjective: Anxious, Body Aches. Objective: PATIENT A & O X 3, OBSERVED AMBULATING ON UNIT. NO ACUTE DISTRESS. 12/04/17 12:38 Vital Signs Temperature 98.4 F 12/04/17 09:29 Pulse Rate 89 12/04/17 09:29 Respiratory Rate 18 12/04/17 09:29 Blood Pressure 141/89 12/04/17 09:29 O2 Sat by Pulse Oximetry (%) Laboratory Tests 11/30/17 11/30/17 11/30/17 21:41 23:49 23:50 WBC RBC Hgb Hct MCV MCH MCHC RDW Plt Count MPV Sodium Potassium Chloride Carbon Dioxide Anion Gap BUN Creatinine Creat Clearance w eGFR POC Glucometer 281 270 Random Glucose Calcium Total Bilirubin AST ALT Alkaline Phosphatase Total Protein Albumin Urine Color Yellow Urine Appearance Clear Urine pH 7.0 Ur Specific [place] 1.021 Urine Protein 2+ H Urine Glucose (UA) 1+ H Urine Ketones Negative Urine Blood Negative Urine Nitrite Negative Urine Bilirubin Negative Urine Urobilinogen 4.0 e.u/dl Ur Leukocyte Esterase Negative Urine WBC (Auto) 1 Urine RBC (Auto) 1 Ur Epithelial Cells Rare Urine Mucus Rare RPR Titer 12/01/17 12/01/17 12/01/17 05:21 07:15 07:15 WBC 7.6 RBC 4.50 Hgb 13.2 Hct 39.6 MCV 87.9 MCH 29.4 MCHC 33.4 RDW 16.2 H Plt Count 156 MPV 10.0 Sodium 139 Potassium 3.9 Chloride 103 Carbon Dioxide 31 Anion Gap 5 L BUN 9 Creatinine 0.9 Creat Clearance w eGFR > 60 POC Glucometer 191 Random Glucose 237 H Calcium 8.5 Total Bilirubin 0.5 AST 29 ALT 46 Alkaline Phosphatase 200 H Total Protein 6.8 Albumin 3.0 L Urine Color Urine Appearance Urine pH Ur Specific [place] Urine Protein Urine Glucose (UA) Urine Ketones Urine Blood Urine Nitrite Urine Bilirubin Urine Urobilinogen Ur Leukocyte Esterase Urine WBC (Auto) Urine RBC (Auto) Ur Epithelial Cells Urine Mucus RPR Titer 12/01/17 12/01/17 12/02/17 07:30 16:22 05:45 WBC RBC Hgb Hct MCV MCH MCHC RDW Plt Count MPV Sodium Potassium Chloride Carbon Dioxide Anion Gap BUN Creatinine Creat Clearance w eGFR POC Glucometer 269 247 Random Glucose Calcium Total Bilirubin AST ALT Alkaline Phosphatase Total Protein Albumin Urine Color Urine Appearance Urine pH Ur Specific [place] Urine Protein Urine Glucose (UA) Urine Ketones Urine Blood Urine Nitrite Urine Bilirubin Urine Urobilinogen Ur Leukocyte Esterase Urine WBC (Auto) Urine RBC (Auto) Ur Epithelial Cells Urine Mucus RPR Titer Nonreactive 12/02/17 12/03/17 12/03/17 16:11 06:12 16:18 WBC RBC Hgb Hct MCV MCH MCHC RDW Plt Count MPV Sodium Potassium Chloride Carbon Dioxide Anion Gap BUN Creatinine Creat Clearance w eGFR POC Glucometer 272 201 207 Random Glucose Calcium Total Bilirubin AST ALT Alkaline Phosphatase Total Protein Albumin Urine Color Urine Appearance Urine pH Ur Specific [place] Urine Protein Urine Glucose (UA) Urine Ketones Urine Blood Urine Nitrite Urine Bilirubin Urine Urobilinogen Ur Leukocyte Esterase Urine WBC (Auto) Urine RBC (Auto) Ur Epithelial Cells Urine Mucus RPR Titer 12/04/17 05:31 WBC RBC Hgb Hct MCV MCH MCHC RDW Plt Count MPV Sodium Potassium Chloride Carbon Dioxide Anion Gap BUN Creatinine Creat Clearance w eGFR POC Glucometer 230 Random Glucose Calcium Total Bilirubin AST ALT Alkaline Phosphatase Total Protein Albumin Urine Color Urine Appearance Urine pH Ur Specific [place] Urine Protein Urine Glucose (UA) Urine Ketones Urine Blood Urine Nitrite Urine Bilirubin Urine Urobilinogen Ur Leukocyte Esterase Urine WBC (Auto) Urine RBC (Auto) Ur Epithelial Cells Urine Mucus RPR Titer LABS NOTED. Assessment: 12/04/17 12:43 WITHDRAWAL SYMPTOMS. Plan: CONTINUE DETOX. INCREASE DAILY PO FLUID INTAKE.
[2017-12-04 14:14] VITALS: BP 132/68; PULSE 72
--- NOTE | 2017-12-04 17:38 | DS ---
[facility] Detox Discharge Summary Admission Date: 11/30/17 Discharge Date: 12/04/17 - History Present History: Alcohol Dependence, Opioid Dependence Additional Comments: PATIENT CONTEMPLATING GOING TO [facility] ([place] EITHER TODAY OR TOMORROW. HOWEVER, PATIENT HAS HISTORY OF SEVERAL CARDIOVASCULAR DISORDERS (SEE PAST MEDICAL HISTORY SECTION) THAT HE HAS NOT HAD EVALUATED OR TREATED OVER LAST FEW MONTHS. PER PATIENT HIMSELF, HE HAS NOT TAKEN ANY OF HIS CURRENTLY PRESCRIBED MEDICATIONS FOR LAST TWO MONTHS. THEREFORE, PATIENT ADVISED TO HAVE MEDICAL / CARDIOLOGIC EVALUATION AND OBTAIN MEDICAL/CARDIOLOGIC CLEARANCE PRIOR TO PROCEEDING ON TO REHAB. [facility] K[employer] M[employer] ASSOCIATE (DR. RAMON) CONSULTED AND SHE ADVISED THAT PATIENT IS NOT SUITABLE TO BE SENT THERE AT THIS TIME DUE TO FACT THAT HE IS NOT CURRENTLY SYMPTOMATIC AND THAT PATIENT'S MEDICAL / CARDIAC ISSUES ARE CHRONIC IN NATURE. PATIENT OFFERED OPPORTUNITY BY [facility]OSP[facility] STAFF TO HAVE APPOINTMENT SCHEDULED WITH [facility] [employer] DR. PACKER ([place] FOR CARDIAC EVALUATION (WITH TRANSPORTATION INCLUDED) ON THURSDAY (12/07/2017) AND THAT PATIENT CAN BE PERMITTED TO REMAIN ON DETOX UNIT UNTIL THAT TIME. HOWEVER, PATIENT DECLINED TO DO SO AND ELECTED TO LEAVE AGAINST MEDICAL ADVICE DESPITE ENCOURAGEMENT FROM [place] LAW CLERK AND COUNSELING STAFF. PATIENT DECLINED OFFER OF MEDICATION PRESCRIPTION RENEWALS TO BE SENT FOR FOLLOW-UP AT TIME IN WHICH HE WAS LEAVING UNIT. 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 , History of Atrial Fibrillation, CHF, Hep C, DM, G.E.R.D., History of Pacemaker Placement, History of TIA. - Physical Exam Results Vital Signs: Vital Signs Temperature 98.4 F 12/04/17 14:13 Pulse Rate 72 12/04/17 14:13 Respiratory Rate 18 12/04/17 14:13 Blood Pressure 132/68 12/04/17 14:13 O2 Sat by Pulse Oximetry (%) Pertinent Admission Physical Exam Findings: WITHDRAWAL SYMPTOMS. Laboratory Tests 11/30/17 11/30/17 11/30/17 21:41 23:49 23:50 WBC RBC Hgb Hct MCV MCH MCHC RDW Plt Count MPV Sodium Potassium Chloride Carbon Dioxide Anion Gap BUN Creatinine Creat Clearance w eGFR POC Glucometer 281 270 Random Glucose Calcium Total Bilirubin AST ALT Alkaline Phosphatase Total Protein Albumin Urine Color Yellow Urine Appearance Clear Urine pH 7.0 Ur Specific [place] 1.021 Urine Protein 2+ H Urine Glucose (UA) 1+ H Urine Ketones Negative Urine Blood Negative Urine Nitrite Negative Urine Bilirubin Negative Urine Urobilinogen 4.0 e.u/dl Ur Leukocyte Esterase Negative Urine WBC (Auto) 1 Urine RBC (Auto) 1 Ur Epithelial Cells Rare Urine Mucus Rare RPR Titer 12/01/17 12/01/17 12/01/17 05:21 07:15 07:15 WBC 7.6 RBC 4.50 Hgb 13.2 Hct 39.6 MCV 87.9 MCH 29.4 MCHC 33.4 RDW 16.2 H Plt Count 156 MPV 10.0 Sodium 139 Potassium 3.9 Chloride 103 Carbon Dioxide 31 Anion Gap 5 L BUN 9 Creatinine 0.9 Creat Clearance w eGFR > 60 POC Glucometer 191 Random Glucose 237 H Calcium 8.5 Total Bilirubin 0.5 AST 29 ALT 46 Alkaline Phosphatase 200 H Total Protein 6.8 Albumin 3.0 L Urine Color Urine Appearance Urine pH Ur Specific [place] Urine Protein Urine Glucose (UA) Urine Ketones Urine Blood Urine Nitrite Urine Bilirubin Urine Urobilinogen Ur Leukocyte Esterase Urine WBC (Auto) Urine RBC (Auto) Ur Epithelial Cells Urine Mucus RPR Titer 12/01/17 12/01/17 12/02/17 07:30 16:22 05:45 WBC RBC Hgb Hct MCV MCH MCHC RDW Plt Count MPV Sodium Potassium Chloride Carbon Dioxide Anion Gap BUN Creatinine Creat Clearance w eGFR POC Glucometer 269 247 Random Glucose Calcium Total Bilirubin AST ALT Alkaline Phosphatase Total Protein Albumin Urine Color Urine Appearance Urine pH Ur Specific [place] Urine Protein Urine Glucose (UA) Urine Ketones Urine Blood Urine Nitrite Urine Bilirubin Urine Urobilinogen Ur Leukocyte Esterase Urine WBC (Auto) Urine RBC (Auto) Ur Epithelial Cells Urine Mucus RPR Titer Nonreactive 12/02/17 12/03/17 12/03/17 16:11 06:12 16:18 WBC RBC Hgb Hct MCV MCH MCHC RDW Plt Count MPV Sodium Potassium Chloride Carbon Dioxide Anion Gap BUN Creatinine Creat Clearance w eGFR POC Glucometer 272 201 207 Random Glucose Calcium Total Bilirubin AST ALT Alkaline Phosphatase Total Protein Albumin Urine Color Urine Appearance Urine pH Ur Specific [place] Urine Protein Urine Glucose (UA) Urine Ketones Urine Blood Urine Nitrite Urine Bilirubin Urine Urobilinogen Ur Leukocyte Esterase Urine WBC (Auto) Urine RBC (Auto) Ur Epithelial Cells Urine Mucus RPR Titer 12/04/17 05:31 WBC RBC Hgb Hct MCV MCH MCHC RDW Plt Count MPV Sodium Potassium Chloride Carbon Dioxide Anion Gap BUN Creatinine Creat Clearance w eGFR POC Glucometer 230 Random Glucose Calcium Total Bilirubin AST ALT Alkaline Phosphatase Total Protein Albumin Urine Color Urine Appearance Urine pH Ur Specific [place] Urine Protein Urine Glucose (UA) Urine Ketones Urine Blood Urine Nitrite Urine Bilirubin Urine Urobilinogen Ur Leukocyte Esterase Urine WBC (Auto) Urine RBC (Auto) Ur Epithelial Cells Urine Mucus RPR Titer LABS NOTED. - Treatment Hospital Course: Detoxed Safely - Medication Discharge Medications: Ambulatory Orders Aspirin [ASA -] 81 mg PO DAILY 11/30/17 Atorvastatin Calcium 10 mg PO HS 11/30/17 Budesonide/Formeterol Fumarate [SYMBICORT 160/4.5mcg -] 1 inh PO BID 11/30/17 Enoxaparin [Lovenox -] 60 mg SQ BID 11/30/17 Fluocinonide 0.05% Cream [Lidex 0.05% Cream -] 1 applic TP BID 11/30/17 Insulin (Novolog) [Novolog] 0 units SQ AC 11/30/17 Lisinopril [Prinivil] 20 mg PO DAILY 11/30/17 Sertraline HCl [Zoloft -] 25 mg PO HS 11/30/17 metFORMIN HCL [Metformin HCl] 500 mg PO BID 11/30/17 Isosorbide Mononitrate [Isosorbide Mononitrate ER] 30 mg PO DAILY 12/01/17 Ranolazine [Ranexa -] 500 mg PO BID 12/01/17 - Diagnosis (1) Alcohol dependence with withdrawal Status: Acute Qualifiers: Complication of substance-induced condition: uncomplicated Qualified Code(s ): F10.230 - Alcohol dependence with withdrawal, uncomplicated (2) Elevated blood pressure reading in office with diagnosis of hypertension Status: Acute (3) IV drug user Status: Acute (4) Opioid dependence with withdrawal Status: Acute (5) CHF (congestive heart failure) Status: Chronic Qualifiers: Heart failure type: unspecified Heart failure chronicity: chronic Qualified Code(s): I50.9 - Heart failure, unspecified (6) COPD (chronic obstructive pulmonary disease) Status: Chronic Qualifiers: COPD type: unspecified COPD Qualified Code(s): J44.9 - Chronic obstructive pulmonary disease, unspecified (7) GERD (gastroesophageal reflux disease) Status: Chronic Qualifiers: Esophagitis presence: without esophagitis Qualified Code(s): K21.9 - Gastro -esophageal reflux disease without esophagitis (8) Hypertension Status: Chronic Qualifiers: Hypertension type: essential hypertension Qualified Code(s): I10 - Essential (primary) hypertension (9) Pacemaker Status: Chronic (10) Non compliance w medication regimen Status: Chronic (11) Obese Status: Chronic Qualifiers: Obesity type: unspecified obesity type Obesity classification: adult class 2 (BMI 35 - 39.9) Serious obesity comorbidity presence: with serious comorbidity Body mass index: BMI 36.0-36.9 Qualified Code(s): E66.9 - Obesity, unspecified; Z68.36 - Body mass index (BMI) 36.0-36.9, adult (12) PTSD (post-traumatic stress disorder) Status: Chronic (13) Substance induced mood disorder Status: Acute (14) Substance-induced sleep disorder Status: Acute - AMA Did Patient Leave Against Medical Advice: Yes (PATIENT DID NOT WISH TO REMAIN COMPLETE DETOX REGIMEN.)
[2017-12-05] MEDS ORDERED: METHADONE HCL 5 MG TABLET (FOR DETOX USE ONLY) PO SCH (06:00)
== END 2017-12-04 15:37 | disposition left against medical advice (07) | DRG 770 ==
LOC: YASAS 19:56 → Y3N 22:43
PROVIDERS: ADMIT Surgery; ATTEND Surgery
PROC: HZ2ZZZZ Detoxification Services for Substance Abuse Treatment (ICD-10-PCS; principal; 2017-11-30)
DX: F11.23 Opioid dependence with withdrawal (principal); F10.230 Alcohol dependence with withdrawal, uncomplicated; F19.24 Other psychoactive substance dependence with psychoactive substance-induced mood disorder; F19.282 Other psychoactive substance dependence with psychoactive substance-induced sleep disorder; F43.10 Post-traumatic stress disorder, unspecified; I10 Essential (primary) hypertension; I50.9 Heart failure, unspecified; I25.2 Old myocardial infarction; I48.91 Unspecified atrial fibrillation; Z79.01 Long term (current) use of anticoagulants; Z79.82 Long term (current) use of aspirin; Z95.0 Presence of cardiac pacemaker; J44.9 Chronic obstructive pulmonary disease, unspecified; K21.9 Gastro-esophageal reflux disease without esophagitis; E78.00 Pure hypercholesterolemia, unspecified; E11.9 Type 2 diabetes mellitus without complications; Z79.4 Long term (current) use of insulin; Z79.84 Long term (current) use of oral hypoglycemic drugs; B18.2 Chronic viral hepatitis C; E66.9 Obesity, unspecified; Z68.36 Body mass index [BMI] 36.0-36.9, adult; Z86.73 Personal history of transient ischemic attack (TIA), and cerebral infarction without residual deficits; Z91.14 Patient's other noncompliance with medication regimen
CPT/HCPCS: 36415; 80053; 81003; 81015; 82962; 85027; 86593; 93005; 93010; J0735